=== PATIENT | female | born 1940 | race Caucasian/White ===

== ENCOUNTER 2017-10-08 16:48 | Inpatient (IN) | payer MEDICARE, OTHER ==
[~2017-10-08] VITALS: Ht 152.4 cm; Wt 36.7 kg
[2017-10-08] MEDS ORDERED: SODIUM CHLORIDE FLUSH 10ML SYR IVF ONE (17:30)
[2017-10-08] MEDS ORDERED: FAMOTIDINE 20 MG/2 ML IVP ONE (17:30)
[2017-10-08] MEDS ORDERED: MORPHINE SULFATE 4 MG/ML, 1ML IVPush PRN (17:30)
[2017-10-08 17:31] LABS: BASOPHILS % (AUTO) 1 % (0-1); EOSINOPHILS # (AUTO) 0.15 x10^3/uL (0-0.4); EOSINOPHILS % (AUTO) 1 % (1-7); LYMPHOCYTES # (AUTO) 2.55 x10^3/uL (1-3.4); LYMPHOCYTES % (AUTO) 23 % (22-44); MD NO; MEAN CORPUSCULAR HEMOGLOBIN 28.3 pg (27.0-34.8); MEAN CORPUSCULAR HGB CONC 33.4 g/dL (32.4-35.8); MEAN CORPUSCULAR VOLUME 84.8 fL (80-100); MEAN PLATELET VOLUME 8.8 fL (7.4-10.4); MONOCYTES # (AUTO) 0.82 x10^3/uL (0.2-0.8); MONOCYTES % (AUTO) 8 % (2-9); NEUTROPHILS # (AUTO) 7.27 x10^3/uL (1.8-6.8); NEUTROPHILS % (AUTO) 67 % (42-75); PLATELET COUNT 341 x10^3/uL (130-400); RED BLOOD COUNT 4.83 x10^6/uL (3.82-5.3); RED CELL DISTRIBUTION WIDTH 13.8 % (9.6-15.2)
[2017-10-08 17:41] LABS: ALBUMIN 3.7 g/dL (3.4-5.0); ANION GAP 6 mmol/L (5-15); CALCIUM 8.6 mg/dL (8.5-10.1); CHLORIDE 105 mmol/L (98-107)
[2017-10-08 17:45] LABS: ALANINE AMINOTRANSFERASE 19 U/L (12-78); ALKALINE PHOSPHATASE 53 U/L (45-117); BILIRUBIN,TOTAL 0.5 mg/dL (0.2-1.0); CREATININE 0.77 mg/dL (0.55-1.02); TOTAL PROTEIN 7.7 g/dL (6.4-8.2)
[2017-10-08] MEDS ORDERED: FAMOTIDINE 20 MG/2 ML ONE (17:54)
[2017-10-08] MEDS ORDERED: MORPHINE SULFATE 4 MG/ML, 1ML ONE (17:54)
[2017-10-08 17:59] LABS: TROPONIN I < 0.015 ng/mL (0.000-0.045)
[2017-10-08 18:01] LABS: MICROSCOPIC NOT IND
[2017-10-08 18:03] LABS: CULTURE INDICATED? YES
[2017-10-08] MEDS ORDERED: SODIUM CHLORIDE 0.9% 1,000 ML IV SCH (19:36)
[2017-10-08 20:00] VITALS: BP 148/79
[2017-10-08] MEDS ORDERED: BISACODYL 10 MG SUPP PR PRN (20:00)
[2017-10-08] MEDS ORDERED: PROMETHAZINE 25 MG/ML, 1ML IM PRN (20:00)
[2017-10-08] MEDS ORDERED: OXYcodone IR 5MG TABLET PO PRN (20:00)
[2017-10-08] MEDS ORDERED: DOCUSATE 100 MG CAPSULE PO PRN (20:00)
[2017-10-08] MEDS ORDERED: POLYETHYLENE GLYCOL 17 GM PACKET PO PRN (20:00)
[2017-10-08] MEDS ORDERED: ONDANSETRON ODT 4 MG PO PRN (20:00)
[2017-10-08] MEDS ORDERED: ONDANSETRON 2MG/ML, 2ML IVPush PRN (20:00)
[2017-10-08] MEDS ORDERED: hydrALAzine 20 MG/ML, 1ML IVPush PRN (20:00)
[2017-10-08] MEDS ORDERED: ACETAMINOPHEN 325 MG TABLET PO PRN (20:00)
[2017-10-08 20:06] VITALS: BP 148/79
[2017-10-08 20:29] LABS: HEMOGLOBIN A1C 6.2 % (4.2-6.3)
[2017-10-08 20:31] LABS: FREE T4 (FREE THYROXINE) 1.16 ng/dL (0.76-1.46); THYROID STIMULATING HORMONE 1.27 mIU/L (0.358-3.740)
[2017-10-08] MEDS: PANTOPRAZOLE 40 MG IV IVPush SCH (21:32)
[2017-10-08] MEDS: D5%-0.9% NACL+KCL 20MEQ 1,000 ML IV SCH (21:32)
[2017-10-08] MEDS: NICOTINE 7 MG/24 HR PATCH.TD24 TD SCH (21:32)
[2017-10-08] MEDS ORDERED: ALBUTEROL/IPRATROPIUM 2.5MG/0.5MG, 3 ML NPPB PRN (22:00)
[2017-10-09 00:55] LABS: TROPONIN I < 0.015 ng/mL (0.000-0.045)
[2017-10-09 02:18] VITALS: BP 98/58
[2017-10-09] MEDS: D5%-0.9% NACL+KCL 20MEQ 1,000 ML IV SCH (05:29)
[2017-10-09 06:54] LABS: BASOPHILS # (AUTO) 0.07 x10^3/uL (0-0.1); BASOPHILS % (AUTO) 1 % (0-1); EOSINOPHILS # (AUTO) 0.16 x10^3/uL (0-0.4); EOSINOPHILS % (AUTO) 2 % (1-7); LYMPHOCYTES # (AUTO) 2.45 x10^3/uL (1-3.4); LYMPHOCYTES % (AUTO) 36 % (22-44); MD NO; MEAN CORPUSCULAR HEMOGLOBIN 28.3 pg (27.0-34.8); MEAN CORPUSCULAR VOLUME 85.8 fL (80-100); MEAN PLATELET VOLUME 8.6 fL (7.4-10.4); MONOCYTES % (AUTO) 12 % (2-9); NEUTROPHILS # (AUTO) 3.25 x10^3/uL (1.8-6.8); NEUTROPHILS % (AUTO) 48 % (42-75); PLATELET COUNT 281 x10^3/uL (130-400); RED BLOOD COUNT 4.05 x10^6/uL (3.82-5.3); RED CELL DISTRIBUTION WIDTH 13.6 % (9.6-15.2)
[2017-10-09 07:00] LABS: TROPONIN I < 0.015 ng/mL (0.000-0.045)
[2017-10-09 07:01] LABS: ALANINE AMINOTRANSFERASE 15 U/L (12-78); ALBUMIN 2.8 g/dL (3.4-5.0); ANION GAP 3 mmol/L (5-15); CALCIUM 7.4 mg/dL (8.5-10.1); CHLORIDE 114 mmol/L (98-107); CHOLESTEROL, TOTAL 122 mg/dL (140-239); CREATININE 0.75 mg/dL (0.55-1.02)
[2017-10-09 07:03] LABS: ALKALINE PHOSPHATASE 42 U/L (45-117); BILIRUBIN,TOTAL 0.4 mg/dL (0.2-1.0); HDL CHOL % 51 % (28-40); HDL CHOLESTEROL (DIRECT) 62 mg/dL (40-60); LDL CHOLESTEROL,CALCULATED 43 mg/dL (54-169); LDL/HDL RATIO 0.7 (0.5-3.0); TRIGLYCERIDES 86 mg/dL (50-200); VLDL CHOLESTEROL 17 mg/dL (0-25)
[2017-10-09 08:28] VITALS: BP 101/62
[2017-10-09] MEDS: D5%-0.45% NACL 1,000 ML IV SCH ×2 (09:30→15:00)
[2017-10-09] MEDS: PANTOPRAZOLE 40 MG IV IVPush SCH ×2 (09:38→20:59)
[2017-10-09 14:30] VITALS: BP 105/56
[2017-10-09 20:27] VITALS: BP 103/65
[2017-10-09] MEDS: NICOTINE 7 MG/24 HR PATCH.TD24 TD SCH (21:00)
[2017-10-10 03:50] VITALS: BP 114/68
[2017-10-10 08:30] VITALS: BP 123/71
[2017-10-10] MEDS: DOCUSATE 100 MG CAPSULE PO SCH ×2 (09:23→20:58)
[2017-10-10] MEDS: PANTOPRAZOLE 40 MG IV IVPush SCH ×2 (09:23→20:58)
[2017-10-10] MEDS: POLYETHYLENE GLYCOL 17 GM PACKET PO SCH (09:23)
[2017-10-10] MEDS: morphine SULFATE 10 MG/ML, 1ML IVPush PRN ×2 (13:53→15:55)
[2017-10-10 14:30] VITALS: BP 142/74
[2017-10-10] MEDS: NICOTINE 7 MG/24 HR PATCH.TD24 TD SCH ×2 (20:00→20:57)
[2017-10-10 20:31] VITALS: BP 132/76
[2017-10-11 01:30] VITALS: BP 111/63
[2017-10-11 05:36] LABS: ANION GAP 5 mmol/L (5-15); CALCIUM 8.1 mg/dL (8.5-10.1); CHLORIDE 112 mmol/L (98-107)
[2017-10-11 05:37] LABS: CREATININE 0.75 mg/dL (0.55-1.02)
[2017-10-11] MEDS ORDERED: MAALOX/HYOSCYAMINE/LIDOCAINE 45 ML BTL PO ONE (07:00)
[2017-10-11 07:33] VITALS: BP 135/76
[2017-10-11] MEDS: PANTOPRAZOLE 40 MG IV IVPush SCH (08:59)
[2017-10-11] MEDS: POLYETHYLENE GLYCOL 17 GM PACKET PO SCH (09:00)
[2017-10-11] MEDS: DOCUSATE 100 MG CAPSULE PO SCH ×2 (09:00→20:41)
[2017-10-11 13:21] VITALS: BP 106/54
[2017-10-11] MEDS: SUCRALFATE 1 GM/10 ML UDC PO SCH ×2 (16:24→20:41)
[2017-10-11 19:30] VITALS: BP 119/68
[2017-10-11] MEDS: NICOTINE 7 MG/24 HR PATCH.TD24 TD SCH (20:41)
[2017-10-12 01:05] VITALS: BP 116/68
[2017-10-12] MEDS ORDERED: MAGNESIUM CITRATE 300ML ORAL SOL PO PRN (06:00)
[2017-10-12] MEDS: SUCRALFATE 1 GM/10 ML UDC PO SCH ×2 (06:35→11:42)
[2017-10-12 07:10] VITALS: BP 146/82
[2017-10-12] MEDS ORDERED: PANTOPROZOLE 40MG TABLET PO SCH (07:30)
[2017-10-12] MEDS: DOCUSATE 100 MG CAPSULE PO SCH (07:55)
[2017-10-12] MEDS: POLYETHYLENE GLYCOL 17 GM PACKET PO SCH (07:55)
[2017-10-12] MEDS ORDERED: PANT40TA5 PO (13:16)
[2017-10-12 14:00] VITALS: BP 112/69
== END 2017-10-12 15:56 | disposition home or self-care (01) | DRG 388 ==
LOC: ED 19:28 → 3NE 20:00
PROVIDERS: ADMIT Emergency Medicine; ATTEND Emergency Medicine
DX: K56.51 Intestinal adhesions [bands], with partial obstruction (principal); E43 Unspecified severe protein-calorie malnutrition; R65.10 Systemic inflammatory response syndrome (SIRS) of non-infectious origin without acute organ dysfunction; D72.829 Elevated white blood cell count, unspecified; F17.210 Nicotine dependence, cigarettes, uncomplicated; I25.10 Atherosclerotic heart disease of native coronary artery without angina pectoris; N83.202 Unspecified ovarian cyst, left side; Z80.1 Family history of malignant neoplasm of trachea, bronchus and lung; Z90.5 Acquired absence of kidney; Z90.710 Acquired absence of both cervix and uterus; Z88.2 Allergy status to sulfonamides
CPT/HCPCS: 36415; 74022; 74177; 80048; 80053; 80061; 81003; 83036; 83690; 83735; 84439; 84443; 84484; 85025; 86677; 87086; 93005; 96374; 96375; J2550; Q0162; C9113; J2270; J3480; S0028

== ENCOUNTER → 2018-01-11 | Outpatient (CLI) | payer MEDICARE, OTHER ==
[~2018-01-11] MED LIST: PANT40TA5 PO
== END | disposition home or self-care (01) ==
LOC: ROC 14:14
PROVIDERS: ATTEND Radiology Radiation Oncology
DX: Z02.9 Encounter for administrative examinations, unspecified (principal)

== ENCOUNTER → 2018-01-11 | Outpatient (CLI) | payer MEDICARE, OTHER | END | disposition home or self-care (01) | LOC: ROC 13:58 | PROVIDERS: ATTEND Radiology Radiation Oncology | DX: C34.31 Malignant neoplasm of lower lobe, right bronchus or lung (principal) | CPT/HCPCS: G0463 ==

== ENCOUNTER 2018-02-01 05:23 | Day surgery (SDC) | payer MEDICARE, OTHER ==
[~2018-02-01] VITALS: Ht 152.4 cm; Wt 43.8 kg
[2018-02-01 06:35] VITALS: BP 111/67
[2018-02-01] MEDS ORDERED: SODIUM CHLORIDE 0.9% 1,000 ML IV SCH (06:37)
[2018-02-01] MEDS ORDERED: LIDOCAINE-MPF 2%, 2ML ONE (07:53)
[2018-02-01] MEDS ORDERED: FENTANYL PF 100 MCG/2ML ONE ×2 (08:01)
[2018-02-01] MEDS ORDERED: MIDAZOLAM 1 MG/ML, 5ML ONE (08:02)
[2018-02-01] MEDS ORDERED: FLUMAZENIL 0.1 MG/1 ML, 5ML ONE (08:02)
[2018-02-01] MEDS ORDERED: NALOXONE 1 MG/ML, 2ML ONE (08:02)
== END 2018-02-01 12:25 | disposition home or self-care (01) ==
LOC: OUT 05:23
PROVIDERS: ATTEND Radiology Radiation Oncology
DX: C34.91 Malignant neoplasm of unspecified part of right bronchus or lung (principal); J43.9 Emphysema, unspecified; F17.210 Nicotine dependence, cigarettes, uncomplicated; Z88.1 Allergy status to other antibiotic agents; Z88.8 Allergy status to other drugs, medicaments and biological substances; Z98.890 Other specified postprocedural states; Z90.710 Acquired absence of both cervix and uterus; Z72.89 Other problems related to lifestyle; Z87.19 Personal history of other diseases of the digestive system
CPT/HCPCS: 32553; 71045; 77014; 99156; A4648; J2250; J3010; J3490; J7030; 99157; J2310

== ENCOUNTER → 2018-05-17 | Outpatient (CLI) | payer MEDICARE, OTHER | END | disposition home or self-care (01) | LOC: ROC 08:34 | PROVIDERS: ATTEND Radiology Radiation Oncology | DX: C34.31 Malignant neoplasm of lower lobe, right bronchus or lung (principal) | CPT/HCPCS: G0463 ==

== ENCOUNTER 2018-11-02 12:42 | Outpatient (CLI) | payer MEDICARE, OTHER | END 2018-11-02 23:59 | disposition home or self-care (01) | LOC: PETCFH 12:42 | PROVIDERS: ATTEND Radiology Radiation Oncology | DX: C34.31 Malignant neoplasm of lower lobe, right bronchus or lung (principal); K76.89 Other specified diseases of liver; I10 Essential (primary) hypertension; Z98.890 Other specified postprocedural states | CPT/HCPCS: 78815; A9552 ==